=== PATIENT | female | born 1950 | race Two or more races ===

== ENCOUNTER 2024-11-22 23:52 | Inpatient (IN) | payer OTHER ==
[~2024-11-22] VITALS: Ht 152.4 cm; Wt 118.0 kg
--- NOTE | 2024-11-23 00:09 | ED.PDOC ---
Altered Mental Status HPI Comments 74-year-old female into ER via EMS for confusion. Per EMS, patient being transferred from [facility]. Initial complaint of confusion and altered mental status, noted by family members. Denies any subjective complaints, denies any pain. Diagnostic exams done at [facility] showed elevated troponin levels, so patient was transferred to this institution for further evaluation and management. Denies any chest pains. Patient does have history of diabetes, congestive heart failure, lupus. Chief Complaint: Confusion Time Seen by MD: 00:09 Reviewed Notes: Truck Crane Operator Notes Allergies: Coded Allergies: NO KNOWN ALLERGIES (Unverified , 11/23/24) Information Source: Patient, Emergency Med Personnel Mode of Arrival: EMS Severity: Unable to Care for Self Timing: Hours Duration: Since onset Prehospital treatment: None Quality: Decreased Alertness, Change in Behavior, Confusion History of: Diabetes Past Medical History PAST MEDICAL HISTORY: CHF, DM Past Medical History (Other): Lupus Surgical History: Denies all surgeries REHAB RN History: Denies all REHAB RN Hx Family History Family History: Reviewed,noncontributory to illness Social History Smoker: Non-Smoker Alcohol: Denies ETOH Use Drugs: Denies Drug Use Lives In: Home Unable to Obtain due to: Altered Mental Status Physical Exam General Appearance: No Apparent Distress, Normal HEENT: Normal ENT Inspection, Pharynx Normal, TMs Normal Neck: Full Range of Motion, Non-Tender, Normal, Normal Inspection Respiratory: Chest Non-Tender, Lungs Clear, No Accessory Muscle Use, No Respiratory Distress, Normal Breath Sounds Cardiovascular: No Edema, No JVD, No Murmur, No Gallop, Normal Peripheral Pulses, Regular Rate/Rhythm Breast Exam: Deferred Gastrointestinal: No Organomegaly, Non Tender, No Pulsatile Mass, Normal Bowel Sounds, Soft Genitalia: Deferred Pelvic: Deferred Rectal: Deferred Extremities: No calf tenderness, Normal capillary refill, Normal inspection, Normal range of motion, Non-tender, No pedal edema Musculoskeletal : Apperance: Normal Neurologic: Alert, meatcutter II-XII nml as Tested, No Motor Deficits, Normal Affect, Normal Mood, No Sensory Deficits Cerebellar Function: Normal Reflexes: Normal Skin: Dry, Normal Color, Warm Lymphatic: No Adenopathy Was a procedure done? Was a procedure done?: No Differential Diagnosis (ALOC) Differential Diagnosis: Hypoglycemia, Encephalopathy, Sepsis, Hypoxemia, CVA, Heart Failure, Renal Failure X-Ray, Labs, Meds, VS Vital Signs Date Time Temp Pulse Resp B/P (MAP) Pulse Ox O2 Delivery O2 Flow Rate FiO2 11/22/24 23:52 98.3 84 18 110/72 98 98.3 Lab Test 11/23/24 01:50 11/23/24 00:44 Range/Units White Blood Count 7.3 4.4-10.8 10^3/uL Red Blood Count 4.00 4.0-5.20 10^6/uL Hemoglobin 10.4 L 12.2-16.2 g/dL Hematocrit 30.6 L 36.0-46.0 % Mean Corpuscular Volume 76.3 L 80.0-100.0 fL Mean Corpuscular Hemoglobin 25.9 L 28.0-32.0 pg Mean Corpuscular Hemoglobin Concent 33.9 32.0-36.0 g/dL Red Cell Distribution Width 15.9 H 11.8-14.3 % Platelet Count 9 *L 140-450 10^3/uL Mean Platelet Volume 8.7 6.9-10.8 fL Neutrophils (%) (Auto) 73.5 37.0-80.0 % Lymphocytes (%) (Auto) 16.0 10.0-50.0 % Monocytes (%) (Auto) 7.6 0.0-12.0 % Eosinophils (%) (Auto) 2.1 0.0-7.0 % Basophils (%) (Auto) 0.8 0.0-2.0 % Neutrophils # (Auto) 5.4 1.6-8.6 10 ^3/uL Lymphocytes # (Auto) 1.2 0.4-5.4 10 ^3/uL Monocytes # (Auto) 0.6 0-1.3 10 ^3/uL Eosinophils # (Auto) 0.2 0-0.8 10 ^3/uL Basophils # (Auto) 0.1 0-0.2 10 ^3/uL Nucleated Red Blood Cells 0.6 % Platelet Estimate Pending Troponin I High Sensitivity 1612 *H 1870 *H </=34 ng/L Sodium Level 136 136-145 mmol/L Potassium Level 4.1 3.5-5.1 mmol/L Chloride Level 101 98-107 mmol/L Carbon Dioxide Level 18 L 20-31 mmol/L Anion Gap 17 H 5-15 Blood Urea Nitrogen 64 H 9-23 mg/dL Creatinine 3.94 H 0.550-1.02 mg/dL Glomerular Filtration Rate Calc 11 >90 mL/min BUN/Creatinine Ratio 16.2 10.0-20.0 Serum Glucose 109 H 74-106 mg/dL Lactic Acid Level 1.5 0.4-2.0 mmol/L Calcium Level 9.0 8.7-10.4 mg/dL Magnesium Level 1.9 1.6-2.6 mg/dL Total Bilirubin 3.3 H 0.2-1.0 mg/dL Aspartate Amino Transferase (AST) 107 H 13-40 U/L Alanine Aminotransferase (ALT) 36 7-40 U/L Alkaline Phosphatase 71 46-116 U/L B-Type Natriuretic Peptide 76.94 0-100 pg/mL Total Protein 8.4 H 5.7-8.2 g/dL Albumin 4.0 3.2-4.8 g/dL Plasma/Serum Blood Alcohol < 3.0 <10 mg/dL EXAM: CT HEAD WITHOUT CONTRAST INDICATION: ALOC TECHNIQUE: CT of the head without intravenous contrast. Radiation Dose : 1. Head: CT Dose: CTDI volume is 64.82 mGy. Dose-length product is 1277.22 mGy*cm The dose indicators for CT are the volume Computed Tomography (CT) Dose Index (CTDIvol) and the Dose Length Product (DLP), and are measured in units of mGy and mGy-cm, respectively. These indicators are not patient dose, but values generated from the CT scanner acquisition factors. The report includes radiation exposure data for exposures received during this examination. COMPARISON: None FINDINGS: There is no evidence of acute intracranial hemorrhage, extra-axial collection, mass effect, midline shift, herniation or hydrocephalus. Increased prominence of the ventricles, sulci and cisterns consistent with the sequelae of atrophic cortical volume loss. The bennett-white differentiation is intact. Moderate diffuse confluent periventricular and subcortical white matter hypoattenuation is nonspecific but may be related to small vessel ischemic disease. The visualized paranasal sinuses and mastoid air cells are clear. The surrounding soft tissues and osseous structures are unremarkable. IMPRESSION: 1. No acute intracranial abnormality. 2. 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 Radiation optimization: All CT scans at this facility use at least one of these dose optimization techniques: automated exposure control mA and/or kV adjustment per patient size (includes targeted exams where dose is matched to clinical indication) or iterative reconstruction. T RADIOGRAPH Indication: SOB Technique: Single frontal view of the chest was obtained COMPARISON: Left internal jugular central venous catheter tip projects over the proximal superior vena cava. FINDINGS: Lines and Tubes: None Lungs: Clear Pleura: No effusion. No pneumothorax. Cardiomediastinal contours: Unremarkable Bones: Unremarkable hardware within the left glenohumeral joint status post reverse total shoulder arthroplasty. IMPRESSION: 1. No acute cardiopulmonary disease. 2. Left internal jugular central venous catheter. Time of 1ST Reevaluation: 00:05 Reevaluation 1ST: Unchanged Patient Education/Counseling: Diagnosis, Treatment Family Education/Counseling: No Family Present SEPSIS Sepsis Screen Physician Orders Complete Blood Count (11/23/24 00:00) Urinalysis (11/23/24 00:00) Chest Portable (11/23/24 00:11) Head Without Contrast (11/23/24 00:11) Drug Screen (11/23/24 00:00) Industrial Gas Servicer (11/23/24 00:00) Blood Culture (11/23/24 00:00) Troponin-I Hs (11/23/24 03:00) Rbc Morphology (11/23/24 01:50) Vital Signs Date Time Temp Pulse Resp B/P (MAP) Pulse Ox O2 Delivery O2 Flow Rate FiO2 11/22/24 23:52 98.3 84 18 110/72 98 98.3 Laboratory Tests Test 11/23/24 00:44 11/23/24 01:50 Lactic Acid Level 1.5 mmol/L (0.4-2.0) White Blood Count 7.3 10^3/uL (4.4-10.8) Departure 1 Departure Time of Disposition: 02:45 Impression: Primary Impression: Systemic lupus erythematosus Additional Impressions: Acute renal injury Elevated troponin Thrombocytopenia Intermediate coronary syndrome Disposition: 09 ADMITTED INPATIENT Admit to: [facility] Condition: Guarded Comments Patient with history of lupus now with generalized weakness and decreased mental status noted by family. Patient's BUN creatinine are high at 64 and 3.94. To shahzad bilirubin elevated 3.3. Low platelets and 9. Initial troponin is elevated 1870. Second troponin is improved at 1612. Patient received an aspirin and [facility]. Patient I ordered IV fluids. I ordered platelet transfusion. Patient will need to be admitted for supportive care and further workup. Critical Care Note Critical Care Time?: No Stability Stability form required: No Heart Score Heart Score: Heart Score Response (Comments) Value History Slightly Suspicious 0 EKG Repolarization Disturb 1 Age >65 2 Risk Factors 1 or 2 risk factors 1 Troponin >3 x's Normal limit 2 Total 6 I personally scribed for RASHAD THOMPSON MD ([email or web address]) on 11/23/24 at 00:09. Electronically submitted by Jordon Pelletier ([email or web address]). I personally scribed for RASHAD THOMPSON MD ([email or web address]) on 11/23/24 at 02:02. Electronically submitted by Jordon Pelletier ([email or web address]). RASHAD THOMPSON MD Nov 23, 2024 00:09
--- NOTE | 2024-11-23 01:10 | DVH ---
EXAM: CT HEAD WITHOUT CONTRAST INDICATION: ALOC TECHNIQUE: CT of the head without intravenous contrast. Radiation Dose : 1. Head: CT Dose: CTDI volume is 64.82 mGy. Dose-length product is 1277.22 mGy*cm The dose indicators for CT are the volume Computed Tomography (CT) Dose Index (CTDIvol) and the Dose Length Product (DLP), and are measured in units of mGy and mGy-cm, respectively. These indicators are not patient dose, but values generated from the CT scanner acquisition factors. The report includes radiation exposure data for exposures received during this examination. COMPARISON: None FINDINGS: There is no evidence of acute intracranial hemorrhage, extra-axial collection, mass effect, midline s hift, herniation or hydrocephalus. Increased prominence of the ventricles, sulci and cisterns consistent with the sequelae of atrophic c ortical volume loss. The bennett-white differentiation is intact. Moderate diffuse confluent periventricular and subcortical white matter hypoattenuation is nonspecifi c but may be related to small vessel ischemic disease. The visualized paranasal sinuses and mastoid air cells are clear. The surrounding soft tissues and osseous structures are unremarkable. IMPRESSION: 1. No acute intracranial abnormality. 2. 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 Radiation optimization: All CT scans at this facility use at least one of these dose optimization farooq hniques: automated exposure control mA and/or kV adjustment per patient size (includes targeted exam s where dose is matched to clinical indication) or iterative reconstruction.
--- NOTE | 2024-11-23 01:19 | DVH ---
CHEST RADIOGRAPH Indication: SOB Technique: Single frontal view of the chest was obtained COMPARISON: Left internal jugular central venous catheter tip projects over the proximal superior mehdi a cava. FINDINGS: Lines and Tubes: None Lungs: Clear Pleura: No effusion. No pneumothorax. Cardiomediastinal contours: Unremarkable Bones: Unremarkable hardware within the left glenohumeral joint status post reverse total shoulder ar throplasty. IMPRESSION: 1. No acute cardiopulmonary disease. 2. Left internal jugular central venous catheter.
[2024-11-23 02:03] LABS: Hemoglobin 10.4 g/dL (12.2-16.2)
[2024-11-23 02:05] LABS: Hematocrit 30.6 % (36.0-46.0); Mean Corpuscular Hemoglobin 25.9 pg (28.0-32.0); Mean Corpuscular Volume 76.3 fL (80.0-100.0); Nucleated Red Blood Cells % 0.6 %
[2024-11-23 02:13] LABS: Alanine Aminotransferase 36 U/L (7-40); Albumin 4.0 g/dL (3.2-4.8); Alkaline Phosphatase 71 U/L (46-116); Anion Gap 17 (5-15); BUN/Creatinine Ratio 16.2 (10.0-20.0); Calcium 9.0 mg/dL (8.7-10.4); Chloride 101 mmol/L (98-107); Magnesium 1.9 mg/dL (1.6-2.6); Potassium 4.1 mmol/L (3.5-5.1)
[2024-11-23 02:20] LABS: Bilirubin, Total 3.3 mg/dL (0.2-1.0); Blood Urea Nitrogen 64 mg/dL (9-23); Carbon Dioxide 18 mmol/L (20-31); Glucose 109 mg/dL (74-106); Sodium 136 mmol/L (136-145); Total Protein 8.4 g/dL (5.7-8.2)
[2024-11-23] MEDS: SODIUM CHLORIDE 0.9% 500 ML IVB ONE (03:41)
[2024-11-23 08:00] VITALS: PULSE 82; RESP 16; O2SAT 94
[2024-11-23] MEDS ORDERED: ACETAMINOPHEN 325 MG TAB PO PRN (09:45)
[2024-11-23] MEDS ORDERED: NITROGLYCERIN 0.4 MG SL TAB SL PRN (09:45)
[2024-11-23] MEDS ORDERED: ONDANSETRON HCL 4 MG/2 ML VIAL IV PRN (09:45)
[2024-11-23] MEDS ORDERED: MORPHINE SULFATE INJ 2 MG/ml SYRG IV PRN (09:45)
[2024-11-23] MEDS ORDERED: DOCUSATE SOD 100 MG CAP PO PRN (09:45)
[2024-11-23] MEDS ORDERED: HYDROcodone-ACET 5/325MG TAB PO PRN (09:45)
[2024-11-23] MEDS: SODIUM CHLORIDE 0.9% 1,000 ML IV SCH (10:12)
--- NOTE | 2024-11-23 10:20 | DVHHP2 ---
History of Present Illness Reason for Visit: Elevated troponin History of Present Illness Ga Campbell is a 74-year-old female with past medical history of diabetes, CHF, obesity, and lupus, who went to [facility] for confusion. While at [facility] it was noted that her troponin were elevated so she was transferred here for higher level of care. During my initial assessment she was able to tell me her name and date of . She knew she was in the hospital, but unclear as to why. Follows command intermittently, easily side tract in a conversation. CT scan showed no acute findings. Platelets are critically low. Through the afternoon her mentation deteriorated. A repeat head CT was ordered to R/O bleed. Family including Son and Spouse were at the bedside, they are poor center medical director's. Spouse states she has not been feeling well for about 3 days. She has been mostly sleeping and that is not common for her. Cardiovascular: CHF Rheumatologic: Other (Lupus) Endocrine: Diabetes, Hypothyroidism Past Surgical History: Other (left shoulder replacement) Smoke: No ALCOHOL: none Drugs: None Lives: with Family Domestic Violence: Neg Review of Systems Constitutional: No: Fever, Chills, Sweats, Weakness, Malaise, Other Eyes: No: Pain, Vision change, Conjunctivae inflammation, Eyelid inflammation, Other, Redness ENT: No: Ear pain, Ear discharge, Nose pain, Nose discharge, Nose congestion, Mouth pain, Mouth swelling, Throat pain, Throat swelling, Other Respiratory: No: Cough, Dry, Shortness of breath, SOB with excertion, Wheezing, Hemoptysis, Pleuritic Pain, Sputum, Wheezing, Other Cardiovascular: No: Chest Pain, Palpitations, Orthopnea, Paroxysmal Noc. Dyspnea, Edema, Lt Headedness, Other Gastrointestinal: No: Nausea, Vomiting, Abdominal Pain, Diarrhea, Constipation, Melena, Hematochezia, Other Genitourinary: No Dysuria, No Frequency, No Incontinence, No Hematuria, No Retention, No Other Musculoskeletal: No: other, neck pain, shoulder pain, arm pain, back pain, hand pain, leg pain, foot pain Skin: No: Rash, Lesions, Jaundice, Bruising, Other Neurological: Weakness, Incoordination, Change in speech, Confusion; No: Numbness, Seizures, Other Allergies: Coded Allergies: NO KNOWN ALLERGIES (Unverified , 11/23/24) Medications Current Medications Medications Dose Ordered Sig/Christina Route Start Time Stop Time Status Last Admin Dose Admin Sodium Chloride 1,000 ml @ 60 mls/hr [id number] IV 11/23/24 09:45 UNV Acetaminophen/ Hydrocodone Bitart 1 tab Q4HP PRN PO 11/23/24 09:45 UNV Ondansetron HCl 4 mg Q4HP PRN IV 11/23/24 09:45 UNV Docusate Sodium 100 mg BIDPRN PRN PO 11/23/24 09:45 UNV Acetaminophen 650 mg Q6HP PRN PO 11/23/24 09:45 UNV Nitroglycerin 0.4 mg Q5MINP PRN SL 11/23/24 09:45 UNV Morphine Sulfate 2 mg Q30M PRN IV 11/23/24 09:45 UNV Exam Vital Signs Vital Signs Date Time Temp Pulse Resp B/P (MAP) Pulse Ox O2 Delivery O2 Flow Rate FiO2 11/23/24 05:48 98.0 81 22 114/87 (96) 95 98.0 11/23/24 03:44 Room Air* 0 21 General Appearance: Alert, Other (A&O x 2) Respiratory: Clear to auscultation Cardiovascular: Regular rate, Normal S1, Normal S2, No murmurs Abdominal: Normal bowel sounds, Soft, No tenderness Extremities: No clubbing, No cyanosis, Other (bilateral lower extremity edema) Skin: No rashes, No breakdown Neuro: Other (Follows command intermittently, easily side tract in a conversation) Labs/Xrays Labs Test 11/23/24 03:25 11/23/24 01:50 11/23/24 00:44 Range/Units Troponin I High Sensitivity 1591 *H </=34 ng/L White Blood Count 7.3 4.4-10.8 10^3/uL Red Blood Count 4.00 4.0-5.20 10^6/uL Hemoglobin 10.4 L 12.2-16.2 g/dL Hematocrit 30.6 L 36.0-46.0 % Mean Corpuscular Volume 76.3 L 80.0-100.0 fL Mean Corpuscular Hemoglobin 25.9 L 28.0-32.0 pg Mean Corpuscular Hemoglobin Concent 33.9 32.0-36.0 g/dL Red Cell Distribution Width 15.9 H 11.8-14.3 % Platelet Count 9 *L 140-450 10^3/uL Mean Platelet Volume 8.7 6.9-10.8 fL Neutrophils (%) (Auto) 73.5 37.0-80.0 % Lymphocytes (%) (Auto) 16.0 10.0-50.0 % Monocytes (%) (Auto) 7.6 0.0-12.0 % Eosinophils (%) (Auto) 2.1 0.0-7.0 % Basophils (%) (Auto) 0.8 0.0-2.0 % Neutrophils # (Auto) 5.4 1.6-8.6 10 ^3/uL Lymphocytes # (Auto) 1.2 0.4-5.4 10 ^3/uL Monocytes # (Auto) 0.6 0-1.3 10 ^3/uL Eosinophils # (Auto) 0.2 0-0.8 10 ^3/uL Basophils # (Auto) 0.1 0-0.2 10 ^3/uL Nucleated Red Blood Cells 0.6 % Platelet Estimate Markedly decreased Sodium Level 136 136-145 mmol/L Potassium Level 4.1 3.5-5.1 mmol/L Chloride Level 101 98-107 mmol/L Carbon Dioxide Level 18 L 20-31 mmol/L Anion Gap 17 H 5-15 Blood Urea Nitrogen 64 H 9-23 mg/dL Creatinine 3.94 H 0.550-1.02 mg/dL Glomerular Filtration Rate Calc 11 >90 mL/min BUN/Creatinine Ratio 16.2 10.0-20.0 Serum Glucose 109 H 74-106 mg/dL Lactic Acid Level 1.5 0.4-2.0 mmol/L Calcium Level 9.0 8.7-10.4 mg/dL Magnesium Level 1.9 1.6-2.6 mg/dL Total Bilirubin 3.3 H 0.2-1.0 mg/dL Aspartate Amino Transferase (AST) 107 H 13-40 U/L Alanine Aminotransferase (ALT) 36 7-40 U/L Alkaline Phosphatase 71 46-116 U/L B-Type Natriuretic Peptide 76.94 0-100 pg/mL Total Protein 8.4 H 5.7-8.2 g/dL Albumin 4.0 3.2-4.8 g/dL Plasma/Serum Blood Alcohol < 3.0 <10 mg/dL EXAM: CT HEAD WITHOUT CONTRAST FINDINGS: There is no evidence of acute intracranial hemorrhage, extra-axial collection, mass effect, midline shift, herniation or hydrocephalus. Increased prominence of the ventricles, sulci and cisterns consistent with the sequelae of atrophic cortical volume loss. The bennett-white differentiation is intact. Moderate diffuse confluent periventricular and subcortical white matter hypoattenuation is nonspecific but may be related to small vessel ischemic disease. The visualized paranasal sinuses and mastoid air cells are clear. The surrounding soft tissues and osseous structures are unremarkable. IMPRESSION: 1. No acute intracranial abnormality. 2. 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 CHEST RADIOGRAPH FINDINGS: Lines and Tubes: None Lungs: Clear Pleura: No effusion. No pneumothorax. Cardiomediastinal contours: Unremarkable Bones: Unremarkable hardware within the left glenohumeral joint status post reverse total shoulder arthroplasty. IMPRESSION: 1. No acute cardiopulmonary disease. 2. Left internal jugular central venous catheter. SEPSIS Sepsis Screen Date sepsis recognized/suspect: Nov 22, 2024 Time Sepsis recognized/suspect: 2351 Recent Procedure: No On Antibiotic Therapy: No Respiratory Rate >20: No Heart Rate >90: No Temp<36 C (96.8 F) or >38.3 C: No SBP <90 or MAP <65 mmHG: No New Acute Mental Status Change: No Is the patient on CPAP, BIPAP,: No Physician Orders * Cardiology Consult (11/23/24 09:43) Admit (11/23/24 09:44) Code Status (11/23/24 09:44) Sodium Chloride 0.9% (11/23/24 09:45) Hydrocodone-Acet 5/325mg Tab (Two Dot 5/32 (11/23/24 09:45) Ondansetron Hcl (Zofran) (11/23/24 09:45) Docusate Sodium Capsule (Colace Capsule) (11/23/24 09:45) Complete Blood Count (11/24/24 04:00) Comprehensive Metabolic Panel (11/24/24 04:00) Npo (Nothing By Mouth) Diet (11/23/24 Lunch) Condition: Critical (11/23/24 09:44) Acetaminophen Tablet (Tylenol Tablet) (11/23/24 09:45) Nitroglycerin Sublingual (Ntrostat Subli (11/23/24 09:45) Morphine Sulfate Injection (11/23/24 09:45) Stat Ekg For Chest Pain (11/23/24 09:44) Notify Md Of Changes From Base (11/23/24 09:44) District Traffic Chief For 24 Hours (11/23/24 09:44) Emergency Dysrhythmia Protocol (11/23/24 09:44) Rhythm Strips Once Every Shift (11/23/24 09:44) Oxygen By Nasal Cannula (11/23/24 09:44) Vital Signs Date Time Temp Pulse Resp B/P (MAP) Pulse Ox O2 Delivery O2 Flow Rate FiO2 11/23/24 05:48 98.0 81 22 114/87 (96) 95 98.0 11/23/24 03:44 Room Air* 0 21 11/23/24 03:43 98.5 83 19 113/77 (89) 97 98.5 Laboratory Tests Test 11/23/24 00:44 11/23/24 01:50 Lactic Acid Level 1.5 mmol/L (0.4-2.0) White Blood Count 7.3 10^3/uL (4.4-10.8) Medications Medications Dose Ordered Sig/Christina Route Start Time Stop Time Status Last Admin Dose Admin Sodium Chloride 500 ml @ 500 mls/hr Q1H ONCE IVB 11/23/24 00:00 11/23/24 00:59 DC 11/23/24 03:41 500 MLS/HR Assessment/Plan Assessment/Plan Assessment: Elevated troponin, Metabolic encephalopathy, Thrombocytopenia, Acute kidney injury, Lupus, Hypothyroidism, Diabetes, Plan: Admit to Tele, Cardiology consult, Nephrology consult, NPO, D-dimer, CT head, Consider MRI of brain, Accu checks with sliding scale, Home medications reconciled, Plan discussed with: Patient My Orders Orders - CHRISTIAN NOVOA Procedure Category Date Status Time * Cardiology Consult CONS 11/23/24 Transmitted 09:43 Admit ADMIT 11/23/24 Transmitted 09:44 Code Status CODE 11/23/24 Transmitted 09:44 Sodium Chloride 0.9% PHA 11/23/24 Logged 09:45 Hydrocodone-Acet PHA 11/23/24 Logged 5/325mg Tab (Two Dot 09:45 Ondansetron Hcl PHA 11/23/24 Logged (Zofran) 09:[address] [facility] 11/23/24 Logged Capsule (Colace 09:45 Complete Blood Count LAB 11/24/24 Verified 04:00 Comprehensive LAB 11/24/24 Verified Metabolic Panel 04:00 Npo (Nothing By DIET 11/23/24 Transmitted Mouth) Diet Lunch Condition: Critical [facility] 11/23/24 In Process 09:[address] [facility] 11/23/24 Logged (Tylenol Tablet) 09:[address] [facility] 11/23/24 Logged Sublingual (Ntrostat 09:[address] [facility] 11/23/24 Logged Injection 09:45 Stat Ekg For Chest [facility] 11/23/24 In Process Pain 09:44 Notify Of Changes [facility] 11/23/24 In Process From Base 09:44 District Traffic Chief For [facility] 11/23/24 In Process 24 Hours 09:44 Emergency Dysrhythmia [facility] 11/23/24 In Process Protocol 09:44 Rhythm Strips Once [facility] 11/23/24 In Process Every Shift 09:44 Oxygen By Nasal RT 11/23/24 Transmitted Cannula 09:44 Date of Service: Nov 23, 2024 Billing Provider: CHRISTIAN NOVOA Common Visit Codes: [id number] INP/OBS CARE (HIGH) CHRISTIAN NOVOA Nov 23, 2024 10:20
[2024-11-23] MEDS ORDERED: DEXTROSE (50%) 50ML SYRG IV PRN (10:30)
[2024-11-23 10:33] VITALS: BP 132/86; PULSE 81; RESP 17; TEMP 98.3
--- NOTE | 2024-11-23 10:42 | DVHINCON2 ---
Date Seen: Nov 23, 2024 Referring Physician MEIR Zhou Reason for Consultation NSTEMI History of Present Illness This is a 74-year-old female who presented to [facility] on via EMS with a chief complaint of ALOC. The patient has been transferred to our facility for higher level of care. At time of assessment the patient was found A&O x1. Information obtained from records from aforementioned facility. It appears the patient's reported ALOC, generalized weakness, increased lethargy, myalgia, chills, nausea, and anuria. Pertinent negatives including fever, vomiting, diarrhea, chest pain, SOB, abdominal pain, no sick contacts, or trauma. She underwent blood work including a troponin level of 2.53 ng/mL followed by 1.83 ng/mL, d-dimer >29, Hgb/Hct 11.5/32.7, platelet count 10, creatinine 4.1, GFR 11, BNP 171, HgbA1C 5.7, glucose level 132, and negative influenza A&B/SARS antigen. A 12 lead electrocardiogram revealed a normal sinus rhythm with a premature ventricular contraction. She was medicated with ASA 324 mg p.o., Lipitor 40 mg p.o., ondansetron 4 mg IV, and NS x500 mLs. Significant medical history includes systemic lupus erythematosus, unspecified congestive heart failure, diabetes mellitus type 2, dyslipidemia, hypothyroidism, GERD, and morbid obesity. Past Medical History Past medical history reviewed. No other significant than mentioned above. Past Surgical History Port-A-Cath to left upper chest Left shoulder repair Family History Unable to obtain family history at this time. Social History Unable to obtain social history at this time. Allergies: Coded Allergies: NO KNOWN ALLERGIES (Unverified , 11/23/24) Home Meds Unable to obtain home medications at this time. Current Medications Current Medications Medications (Trade) Dose Ordered Sig/Christina Route PRN Reason Start Time Stop Time Status Last Admin Sodium Chloride 1,000 ml @ 60 mls/hr [id number] IV 11/23/24 09:45 11/23/24 10:12 Acetaminophen/ Hydrocodone Bitart ([place] 5/325MG Tab) 1 tab Q4HP PRN PO MODERATE PAIN (4-6 PAIN SCALE) 11/23/24 09:45 Ondansetron HCl (Zofran) 4 mg Q4HP PRN IV NAUSEA / VOMITING 11/23/24 09:45 Docusate Sodium (Colace Capsule) 100 mg BIDPRN PRN PO FOR CONSTIPATION 11/23/24 09:45 Acetaminophen (Tylenol Tablet) 650 mg Q6HP PRN PO PAIN SCALE 1-3 OR TEMP>100.4 11/23/24 09:45 Nitroglycerin (Ntrostat Sublingual) 0.4 mg Q5MINP PRN SL FOR CHEST PAIN 11/23/24 09:45 Morphine Sulfate 2 mg Q30M PRN IV FOR CHEST PAIN 11/23/24 09:45 Diagnostic Test (Pha) (Accu-Chek Comfort Curve T) 1 strip ACHS 11/23/24 11:30 Insulin Human Regular (InsuLIN R) HS SC 11/23/24 22:00 Insulin Human Regular (InsuLIN R) AC SC 11/23/24 11:30 Dextrose 50 ml UD PRN IV Blood Sugar LESS THAN 60 11/23/24 10:30 Review of Systems Constitutional: Generalized weakness, lethargy, myalgia, chills Ears, Nose, & Throat: No symptom reported Eyes: No symptom reported Neurological: ALOC Pulmonary/Respiratory: No symptom reported Cardiovascular: No symptom reported Gastrointestinal: Nausea Genitourinary: Anuria Musculoskeletal: No symptom reported Skin: No symptom reported Psychiatric: No symptom reported Endocrine: No symptom reported Hemotologic/Lymphatic: No symptom reported Vital Signs Vital Signs Date Time Temp Pulse Resp B/P (MAP) Pulse Ox O2 Delivery O2 Flow Rate FiO2 11/23/24 10:33 98.3 81 17 132/86 98.3 11/23/24 05:48 95 11/23/24 03:44 Room Air* 0 21 Physical Exam General Appearance: A&O x1. Confused. Morbidly obese. In no acute distress Head Exam: Normal inspection Neck Exam: Normal inspection. Normal alignment Pulmonary/Respiratory: Clear bilateral breath sounds Cardiovascular/Chest: Regular rate and rhythm. S1, S2. NSR. No murmurs. No JVD. Peripheral Pulses: 2+ Radial (R). 2+ Radial (L). 2+ Pedal (R). 2+ Pedal (L) Abdominal Exam: Normal bowel sounds Ankle Exam: Negative ankle edema Lower extremities: Negative lower extremity edema Neuro/Mental Status: A&O x1. Brief lucid episodes, mostly incoherent Thoughts/Psych: ALOC Appearance: In no acute distress Skin Exam: Normal inspection. Normal color. Warm. Dry Labs/Diagnostic Data Labs Test 11/23/24 03:25 11/23/24 01:50 11/23/24 00:44 Range/Units Troponin I High Sensitivity 1591 *H </=34 ng/L White Blood Count 7.3 4.4-10.8 10^3/uL Red Blood Count 4.00 4.0-5.20 10^6/uL Hemoglobin 10.4 L 12.2-16.2 g/dL Hematocrit 30.6 L 36.0-46.0 % Mean Corpuscular Volume 76.3 L 80.0-100.0 fL Mean Corpuscular Hemoglobin 25.9 L 28.0-32.0 pg Mean Corpuscular Hemoglobin Concent 33.9 32.0-36.0 g/dL Red Cell Distribution Width 15.9 H 11.8-14.3 % Platelet Count 9 *L 140-450 10^3/uL Mean Platelet Volume 8.7 6.9-10.8 fL Neutrophils (%) (Auto) 73.5 37.0-80.0 % Lymphocytes (%) (Auto) 16.0 10.0-50.0 % Monocytes (%) (Auto) 7.6 0.0-12.0 % Eosinophils (%) (Auto) 2.1 0.0-7.0 % Basophils (%) (Auto) 0.8 0.0-2.0 % Neutrophils # (Auto) 5.4 1.6-8.6 10 ^3/uL Lymphocytes # (Auto) 1.2 0.4-5.4 10 ^3/uL Monocytes # (Auto) 0.6 0-1.3 10 ^3/uL Eosinophils # (Auto) 0.2 0-0.8 10 ^3/uL Basophils # (Auto) 0.1 0-0.2 10 ^3/uL Nucleated Red Blood Cells 0.6 % Platelet Estimate Markedly decreased Sodium Level 136 136-145 mmol/L Potassium Level 4.1 3.5-5.1 mmol/L Chloride Level 101 98-107 mmol/L Carbon Dioxide Level 18 L 20-31 mmol/L Anion Gap 17 H 5-15 Blood Urea Nitrogen 64 H 9-23 mg/dL Creatinine 3.94 H 0.550-1.02 mg/dL Glomerular Filtration Rate Calc 11 >90 mL/min BUN/Creatinine Ratio 16.2 10.0-20.0 Serum Glucose 109 H 74-106 mg/dL Lactic Acid Level 1.5 0.4-2.0 mmol/L Calcium Level 9.0 8.7-10.4 mg/dL Magnesium Level 1.9 1.6-2.6 mg/dL Total Bilirubin 3.3 H 0.2-1.0 mg/dL Aspartate Amino Transferase (AST) 107 H 13-40 U/L Alanine Aminotransferase (ALT) 36 7-40 U/L Alkaline Phosphatase 71 46-116 U/L B-Type Natriuretic Peptide 76.94 0-100 pg/mL Total Protein 8.4 H 5.7-8.2 g/dL Albumin 4.0 3.2-4.8 g/dL Plasma/Serum Blood Alcohol < 3.0 <10 mg/dL Assessment Possible uremic encephalopathy Severe thrombocytopenia with history of SLE Elevated D-dimer >29 rule out venous thromboembolism Acute kidney injury NSTEMI, likely type II secondary to above Rule out structural heart disease Microcytic anemia Morbid obesity Plan/Recommendation (Dr. Pierce) Likely NSTEMI Type II secondary to overall clinical derangement. We will continue further cardiac evaluation with a transthoracic echocardiogram to evaluate cardiac function. In the meantime, continue with a bilateral lower extremity venous US to rule out DVT and VQ Scan to rule out PE given elevated d- dimer level >29. Hold off on anticoagulation or antiplatelet therapy at this time given severe thrombocytopenia. Agree with platelet infusion. Obtain a Nephrology consultation. Obtain iron panel, ESR and CRP levels given history of SLE. In the setting of unremarkable TTE and venous thromboembolism, there is no further cardiac work-up indicated at this time. Thank you for allowing us to participate in this patient's care. Please call if you have any questions or concerns. Critical care time: 40 minutes. This medical document was created using an electronic medical record system with voice recognition software and computerized dictation system. Although this document has been carefully reviewed, there might still be some phonetic and typographical errors. Occasional wrong-word or ``sound-alike substitutions may have occurred due to the inherent limitations of voice recognition software. These areas are purely typographical due to imperfections of the software programs and do not reflect any compromise in the patient's medical care. Please read the chart carefully and recognize, using context, where these substitutions have occurred. Plan discussed with: Patient, Other NYHA Physical activity limitations: NA Date of Service: Nov 23, 2024 Billing Provider: KELSEY CHAPMAN Cardiology Common Codes: 62781-[id number] CARE 30-74 MIN KELSEY CHAPMAN Nov 23, 2024 10:42
[2024-11-23 10:48] VITALS: BP 157/99; PULSE 86; RESP 12; TEMP 98.5
[2024-11-23 12:00] VITALS: BP 148/88; PULSE 84; RESP 15; TEMP 98.3
[2024-11-23 12:18] LABS: Urine Protein, UAD 1+ (Negative)
[2024-11-23 12:25] LABS: Amphetamine Screen, Urine Neg (NEGATIVE); Barbiturate Scree,Urine Neg (NEGATIVE); Benzodiazephine Screen, Urine Neg (NEGATIVE); Cannabinoid Screen, Urine Neg (NEGATIVE); Cocaine Screen, Urine Neg (NEGATIVE); Opiate Scree,Urine Pos (NEGATIVE); Phencyclidine Screen, Urine Neg (NEGATIVE)
--- NOTE | 2024-11-23 12:42 | DVH ---
Bilateral Upper Extremity Venous Duplex Clinical History: ELEVATED DDIMER Comparison: None Findings: Duplex Doppler evaluation of the venous systems of the right and left lower neck and upper extremitie s including color Doppler and spectral/pulsed waveform analysis was performed. RIGHT SIDE: The internal jugular vein demonstrates appropriate compressibility and waveform variability. The subclavian vein is patent on color Doppler evaluation without intraluminal thrombus and demonstra aviva waveform variability. The visualized portion of the brachiocephalic vein is patent on color Doppler evaluation without intr aluminal thrombus and demonstrates waveform variability. The axillary vein demonstrates appropriate compressibility and waveform variability. The brachial veins demonstrate appropriate compressibility and patency on Doppler evaluation. The basilic vein is not visualized. The cephalic vein demonstrates appropriate compressibility and patency on Doppler evaluation. LEFT SIDE: The internal jugular vein demonstrates appropriate compressibility and waveform variability. The subclavian vein is patent on color Doppler evaluation without intraluminal thrombus and demonstra aviva waveform variability. The visualized portion of the brachiocephalic vein is patent on color Doppler evaluation without intr aluminal thrombus and demonstrates waveform variability. The axillary vein demonstrates appropriate compressibility and waveform variability. The brachial veins demonstrate appropriate compressibility and patency on Doppler evaluation. The basilic vein is not visualized. The cephalic vein demonstrates appropriate compressibility and patency on Doppler evaluation. Impression: No venous thrombus identified in the right or left upper extremity vessels evaluated above.
[2024-11-23 13:07] VITALS: BP 126/104; PULSE 87; RESP 13; TEMP 98.5
[2024-11-23 13:15] VITALS: BP 126/104; PULSE 87; RESP 13; TEMP 98.5
[2024-11-23] MEDS: ACCU-CHEK COMFORT CURVE STRIP VI SCH (14:06)
[2024-11-23] MEDS: InsuLIN REG 1unit/0.01ml Soln (100units/ml) SC SCH ×2 (14:07→23:00)
[2024-11-23] MEDS: LORazepam 2MG/ML-1ML VIAL IV ONE (14:26)
--- NOTE | 2024-11-23 15:07 | DVH ---
CLINICAL HISTORY: Elevated ddimer TECHNIQUE: Color and duplex doppler imagine of the right lower extremity veins was performed. Vessel compression and augmentation if possible was also performed. COMPARISON: US BI LAT UPPER DVT on DOS: 11/23/24 FINDINGS: Right Lower Extremity: Right common femoral vein: Normal compressibility and flow. Right superficial femoral vein: Normal compressibility and flow. Right popliteal vein: Normal compressibility and flow. Proximal calf veins demonstrate flow. Left Lower Extremity: Not performed due to patient condition. IMPRESSION: No evidence for right lower extremity DVT. Left lower extremity was not performed due to patient condition.
[2024-11-23] MEDS ORDERED: FURO40TA4 PO (18:03)
[2024-11-23] MEDS ORDERED: ASPI81CH49 PO (18:03)
[2024-11-23] MEDS ORDERED: PANT40T PO (18:03)
[2024-11-23] MEDS ORDERED: ATOR40TA52 PO (18:03)
[2024-11-23] MEDS ORDERED: LEVO25TA6 PO (18:03)
[2024-11-23] MEDS ORDERED: TOLT1CAP29 PO (18:03)
[2024-11-23] MEDS ORDERED: POTA-228 PO (18:03)
[2024-11-23] MEDS: diphenhydrAMINE HCL 50 MG/1 ML VL IV ONE (18:15)
--- NOTE | 2024-11-23 19:29 | DVH ---
COMPUTERIZED TOMOGRAPHY OF THE HEAD WITHOUT CONTRAST REASON FOR STUDY: MENTATION CHANGE COMPARISON: CT HEAD WITHOUT CONTRAST on DOS: 11/23/24 TECHNIQUE: Helical tomographic scans were obtained through the brain. 2-D coronal and sagittal refor matted images are provided. Radiation optimization: All CT scans at this facility use at least one of these dose optimization techniques: Automated exposure control mA and/or kV adjustment per patient s ize (includes targeted exams where dose is matched to clinical indication) or iterative reconstructio n. RADIATION DOSE: CTDI: 29.04 mGy DLP: 1138.57 mGy-cm FINDINGS: Motion artifact degrades evaluation. No suspicious intracranial hyperdensity to suggest acu te blood. There is moderate diffuse cerebral atrophy. There is no mass effect nor midline shift. Ther e is no hydrocephalus. The suprasellar cistern is intact. The calvarium is intact. The visualized mas toid air cells and paranasal sinuses are clear. The patient is status post bilateral lens surgeries. IMPRESSION: No acute intracranial abnormality.
[2024-11-23] MEDS: ATORVASTATIN 20 MG TAB PO ONE (21:30)
[2024-11-24] VITALS (52 sets, daily range): BP systolic 91–117; BP diastolic 49–80; PULSE 83–108; RESP 17–38; TEMP 96.8–97.4; O2SAT 56–100
[2024-11-24 01:37] LABS: Base Excess -4.3 mmol/L (-2.0-3.0)
[2024-11-24 02:37] LABS: Hematocrit 27.0 % (36.0-46.0); Hemoglobin 9.3 g/dL (12.2-16.2); Mean Corpuscular Volume 74.4 fL (80.0-100.0); Nucleated Red Blood Cells % 1.0 %
[2024-11-24 02:40] LABS: Mean Corpuscular Hemoglobin 25.6 pg (28.0-32.0)
[2024-11-24 02:49] LABS: Albumin 3.9 g/dL (3.2-4.8); Alkaline Phosphatase 69 U/L (46-116); Anion Gap 14 (5-15); BUN/Creatinine Ratio 23.3 (10.0-20.0); Calcium 9.1 mg/dL (8.7-10.4); Carbon Dioxide 22 mmol/L (20-31); Chloride 105 mmol/L (98-107); Potassium 3.7 mmol/L (3.5-5.1); Sodium 141 mmol/L (136-145); Total Protein 8.2 g/dL (5.7-8.2)
[2024-11-24 02:50] LABS: INR 1.09 (0.9-1.15); Partial Thromboplastin Time 25.3 SEC (24.5-34.5); Prothrombin Time 11.5 sec (9.3-11.8)
[2024-11-24 03:13] LABS: Alanine Aminotransferase 43 U/L (7-40); Bilirubin, Total 3.9 mg/dL (0.2-1.0); Blood Urea Nitrogen 78 mg/dL (9-23); Glucose 139 mg/dL (74-106); Iron 222.0 ug/dL (50-170); Total Iron Binding Capacity 247.0 ug/dL (250-425)
[2024-11-24 04:08] LABS: Hemoglobin 9.1 g/dL (12.2-16.2)
[2024-11-24 04:12] LABS: Hematocrit 26.4 % (36.0-46.0); Mean Corpuscular Hemoglobin 25.8 pg (28.0-32.0); Mean Corpuscular Volume 74.7 fL (80.0-100.0); Nucleated Red Blood Cells % 0.9 %
[2024-11-24 04:13] LABS: Albumin 3.7 g/dL (3.2-4.8); Alkaline Phosphatase 69 U/L (46-116); Anion Gap 15 (5-15); BUN/Creatinine Ratio 19.4 (10.0-20.0); Calcium 9.1 mg/dL (8.7-10.4); Carbon Dioxide 20 mmol/L (20-31); Chloride 106 mmol/L (98-107); Potassium 3.8 mmol/L (3.5-5.1); Sodium 141 mmol/L (136-145); Total Protein 8.0 g/dL (5.7-8.2)
[2024-11-24 04:21] LABS: Glucose 133 mg/dL (74-106)
[2024-11-24 04:22] LABS: Alanine Aminotransferase 44 U/L (7-40); Bilirubin, Total 3.7 mg/dL (0.2-1.0); Blood Urea Nitrogen 63 mg/dL (9-23); Creatine Kinase IFCC 293 U/L (34-145)
[2024-11-24] MEDS: ETOMIDATE (2MG/ML) 20ML VIAL IV ONE ×2 (07:04→07:08)
[2024-11-24] MEDS: ROCURONIUM 10MG/ML 10ML VIAL IV ONE ×2 (07:09→07:56)
[2024-11-24] MEDS: MIDAZOLAM DRIP 50 mg/50mL 50 ML IV SCH (07:15)
[2024-11-24] MEDS: MIDAZOLAM DRIP 50 mg/50mL 50 ML IV ONE (07:20)
[2024-11-24] MEDS: fentaNYL Drip 2500mCg/250mlNS 250 ML IV SCH (07:30)
[2024-11-24] MEDS: LEVOTHYROXINE SODIUM 25 MCG TAB PO ONE (08:00)
--- NOTE | 2024-11-24 08:19 | DVH ---
CHEST RADIOGRAPH Indication: S/P INTUBATION AND OG Technique: XY CHEST PORTABLE COMPARISON: None FINDINGS: Endotracheal tube tip projects 3.9 cm above the abhi. Nasogastric tube projects towards stomach. Left IJ angel catheter tip projects over the confluence of the SVC, brachiocephalic vein. The cardiac silhouette is enlarged. The lungs demonstrate bilateral patchy airspace opacities. The pu lmonary vasculature is prominent. Small bilateral pleural effusions, [id number]. There i s no pneumothorax. IMPRESSION: As above.
[2024-11-24 08:46] LABS: Base Excess -3.5 mmol/L (-2.0-3.0)
[2024-11-24] MEDS ORDERED: DEXTROSE (50%) 50ML SYRG IV PRN (09:00)
[2024-11-24 09:01] LABS: Base Excess -3.5 mmol/L (-2.0-3.0)
[2024-11-24] MEDS: PANTOPRAZOLE 40 MG TAB PO SCH (10:00)
[2024-11-24] MEDS ORDERED: LEVOTHYROXINE SODIUM 25 MCG TAB PO SCH (10:00)
[2024-11-24] MEDS: FUROSEMIDE 40 MG TAB PO SCH (10:00)
--- NOTE | 2024-11-24 11:18 | DVHINCON2 ---
Date of service: Nov 24, 2024 Referring Physician Margarita Lund NP Reason for Consultation Acute kidney injury History of Present Illness Mrs. Campbell is a 74-year-old female who was transferred from [facility] for positive troponin. Her initial presentation to outside facility was related to altered mental status. Current consultation requested for elevated serum creatinine, possible acute kidney injury. Patient was seen in the emergency department, intubated, sedated. All the history was obtained through the chart. Her clinical course in the emergency department notable for progressive respiratory distress requiring intubation, mechanical ventilation. She is found to be profoundly thrombocytopenic. Serum creatinine has been in the three range in his downtrending slightly. Urine volumes in oliguric range since Brasher placement. Past Medical History Heart failure Lupus Diabetes Hypothyroidism Allergies: Coded Allergies: NO KNOWN ALLERGIES (Unverified , 11/23/24) Home Meds Reported Medications Atorvastatin Calcium (ATORVASTATIN CALCIUM) 40 Mg Tab, 1 TAB PO QPM, #90 TAB 3 Refills 11/23/24 Tolterodine Tartrate (Tolterodine Tartrate ER) 4 Mg Cap, 4 MG PO DAILY, CAP 11/23/24 Furosemide (Furosemide) 40 Mg Tab, 1 TAB PO DAILY, #30 TAB 5 Refills 11/23/24 Pantoprazole Sodium Sesquihydr (Pantoprazole Sodium) 40 Mg Tab, 40 MG PO DAILY, TAB 11/23/24 Potassium Chloride (Potassium Chloride ER) 10 Meq Tab, 10 MEQ PO DAILY, TAB 11/23/24 Aspirin (Aspirin) 81 Mg Chw, 81 MG PO DAILY, TAB.CHEW 11/23/24 Levothyroxine Sodium (Levothyroxine Sodium) 25 Mcg Tab, 1 TAB PO DAILY, #30 TAB 5 Refills 11/23/24 Current Medications Current Medications Medications (Trade) Dose Ordered Sig/Christina Route PRN Reason Start Time Stop Time Status Last Admin Diagnostic Test (Pha) (Accu-Chek Comfort Curve T) 1 strip ACHS 11/23/24 11:30 11/24/24 08:53 DC 11/24/24 06:59 Insulin Human Regular (InsuLIN R) HS SC 11/23/24 22:00 11/24/24 08:53 DC Insulin Human Regular (InsuLIN R) AC SC 11/23/24 11:30 11/24/24 08:53 DC Furosemide (Lasix Tablet) 40 mg DAILY PO 11/24/24 10:00 Levothyroxine Sodium (Synthroid Tablet) 25 mcg DAILY PO 11/24/24 10:00 11/24/24 07:53 DC Pantoprazole Sodium (Protonix Tablet) 40 mg DAILY PO 11/24/24 10:00 Aspirin 81 mg DAILY PO 11/24/24 10:00 Hold Atorvastatin Calcium (Lipitor) 40 mg HS PO 11/24/24 22:00 Patient Own Medication 4 mg DAILY PO 11/24/24 10:00 Midazolam HCl 50 ml @ 1 mls/hr Q24H IV 11/24/24 07:15 11/24/24 07:15 Fentanyl Citrate 250 ml @ 2.5 mls/hr Q24H IV 11/24/24 07:30 Levothyroxine Sodium (Synthroid Tablet) 25 mcg DAILY@0600 PO 11/25/24 06:00 Diagnostic Test (Pha) (Accu-Chek Comfort Curve T) 1 strip Q6HR 11/24/24 12:00 Insulin Human Regular (InsuLIN R) Q6HR SC 11/24/24 12:00 Dextrose 50 ml UD PRN IV Blood Sugar LESS THAN 60 11/24/24 09:00 Review of Systems Unable to be obtained due to patient's critical status H&P Exam Vital Signs/I&O Vital Sign Date Time Temp Pulse Resp B/P (MAP) Pulse Ox O2 Delivery O2 Flow Rate FiO2 11/24/24 10:04 89 22 111/80 (90) 100 50 11/24/24 06:00 97.4 97.4 11/24/24 02:50 Nasal Cannula* 4 Intake and Output 11/23/24 11/24/24 19:00 07:00 Intake Total 834 ml 60 ml Output Total 0 ml Balance 834 ml 60 ml Intake Oral 0 ml IV Total 480 ml 60 ml Blood Product 354 ml Output Urine Total 0 ml Stool Total 0 ml Gastric Drainage Total 0 ml Emesis 0 ml Chest Tube Drainage Total 0 ml Other 0 ml Physical Exam Gen: Intubated, sedated heent: nc/at, mmm lungs: Adequate air exchange cvs: no rub abd: soft, bowel sounds audible ext: no edema skin: no rash, no appreciable petechiae neuro: Somnolent, sedated Labs/Diagnostic Data Labs/Diagnostic Data Laboratory Tests Test 11/24/24 08:54 11/24/24 06:36 11/24/24 03:21 11/24/24 02:54 Range/Units Blood Gas Specimen Type Arterial Arterial Blood Gas Sample Site Right radial Right radial Blood Gas Patient Temperature 37.0 37.0 Arterial Blood Date Drawn [id number] Arterial Blood pH 7.358 7.378 7.350-7.450 Arterial Blood Partial Pressure CO2 39.3 36.8 32.0-45.0 mmHg Arterial Blood Partial Pressure O2 359.8 *H 137.2 H 83.0-108.0 mmHg Arterial Blood HCO3 21.6 21.2 21.0-28.0 mmol/L Arterial Blood Oxygen Saturation 99.5 H 98.2 H 94.0-98.0 % Arterial Blood Base Excess -3.5 L -3.5 L -2.0-3.0 mmol/L Arterial Blood Oxyhemoglobin 97.6 96.1 94.0-98.0 % Arterial Blood Carboxyhemoglobin 1.3 1.5 0.5-1.5 % Arterial Blood Methemoglobin 0.6 0.6 0.0-1.5 % Simon Test Modified Yes Blood Gas Total Hemoglobin 9.70 L 9.60 L 12.0-16.0 g/dL Blood Gas Set Respiration Rate 18.0 Blood Gas Modality Vent - ac Nasal cannula FiO2 % 100.0 36.0 Blood Gas Tidal Volume 450.0 Blood Gas PEEP or CPAP 5.0 Blood Gas Critical Value Read Back Yes Blood Gas Notified Whom Dr. sg hermosillo Blood Gas Notified Time [id number] Blood Gas Notified By Rt sarah cavanaugh Blood Gas Liter Flow 4.00 White Blood Count 9.3 4.4-10.8 10^3/uL Red Blood Count 3.53 L 4.0-5.20 10^6/uL Hemoglobin 9.1 L 12.2-16.2 g/dL Hematocrit 26.4 L 36.0-46.0 % Mean Corpuscular Volume 74.7 L 80.0-100.0 fL Mean Corpuscular Hemoglobin 25.8 L 28.0-32.0 pg Mean Corpuscular Hemoglobin Concent 34.6 32.0-36.0 g/dL Red Cell Distribution Width 15.9 H 11.8-14.3 % Platelet Count 11 *L 140-450 10^3/uL Mean Platelet Volume 8.8 6.9-10.8 fL Neutrophils (%) (Auto) 75.8 37.0-80.0 % Lymphocytes (%) (Auto) 13.6 10.0-50.0 % Monocytes (%) (Auto) 9.1 0.0-12.0 % Eosinophils (%) (Auto) 0.7 0.0-7.0 % Basophils (%) (Auto) 0.8 0.0-2.0 % Neutrophils # (Auto) 7.1 1.6-8.6 10 ^3/uL Lymphocytes # (Auto) 1.3 0.4-5.4 10 ^3/uL Monocytes # (Auto) 0.8 0-1.3 10 ^3/uL Eosinophils # (Auto) 0.1 0-0.8 10 ^3/uL Basophils # (Auto) 0.1 0-0.2 10 ^3/uL Nucleated Red Blood Cells 0.9 % Platelet Estimate Markedly decreased Sodium Level 141 136-145 mmol/L Potassium Level 3.8 3.5-5.1 mmol/L Chloride Level 106 98-107 mmol/L Carbon Dioxide Level 20 20-31 mmol/L Anion Gap 15 5-15 Blood Urea Nitrogen 63 #H 9-23 mg/dL Creatinine 3.25 H 0.550-1.02 mg/dL Glomerular Filtration Rate Calc 14 >90 mL/min BUN/Creatinine Ratio 19.4 10.0-20.0 Serum Glucose 133 H 74-106 mg/dL Calcium Level 9.1 8.7-10.4 mg/dL Phosphorus Level 4.3 2.4-5.1 mg/dL Total Bilirubin 3.7 H 0.2-1.0 mg/dL Aspartate Amino Transferase (AST) 121 H 13-40 U/L Alanine Aminotransferase (ALT) 44 H 7-40 U/L Alkaline Phosphatase 69 46-116 U/L Creatine Kinase 293 H 34-145 U/L Total Protein 8.0 5.7-8.2 g/dL Albumin 3.7 3.2-4.8 g/dL POC Glucose 103 70-106 mg/dl Test 11/24/24 02:07 11/24/24 01:14 11/23/24 23:06 11/23/24 13:40 Range/Units White Blood Count 9.7 # 4.4-10.8 10^3/uL Red Blood Count 3.63 L 4.0-5.20 10^6/uL Hemoglobin 9.3 L 12.2-16.2 g/dL Hematocrit 27.0 #L 36.0-46.0 % Mean Corpuscular Volume 74.4 L 80.0-100.0 fL Mean Corpuscular Hemoglobin 25.6 L 28.0-32.0 pg Mean Corpuscular Hemoglobin Concent 34.4 32.0-36.0 g/dL Red Cell Distribution Width 15.9 H 11.8-14.3 % Platelet Count 17 #*L 140-450 10^3/uL Mean Platelet Volume 7.0 6.9-10.8 fL Neutrophils (%) (Auto) 79.8 37.0-80.0 % Lymphocytes (%) (Auto) 10.0 10.0-50.0 % Monocytes (%) (Auto) 8.6 0.0-12.0 % Eosinophils (%) (Auto) 0.9 0.0-7.0 % Basophils (%) (Auto) 0.7 0.0-2.0 % Neutrophils # (Auto) 7.7 1.6-8.6 10 ^3/uL Lymphocytes # (Auto) 1.0 0.4-5.4 10 ^3/uL Monocytes # (Auto) 0.8 0-1.3 10 ^3/uL Eosinophils # (Auto) 0.1 0-0.8 10 ^3/uL Basophils # (Auto) 0.1 0-0.2 10 ^3/uL Nucleated Red Blood Cells 1.0 % Platelet Estimate Markedly decreased Erythrocyte Sedimentation Rate 96 H 0-20 mm/hr Prothrombin Time 11.5 9.3-11.8 sec Prothrombin Time INR 1.09 0.9-1.15 Activated Partial Thromboplast Time 25.3 24.5-34.5 SEC D-Dimer, Quantitative 26.14 H 0.0-0.49 mg/L FEU Sodium Level 141 # 136-145 mmol/L Potassium Level 3.7 3.5-5.1 mmol/L Chloride Level 105 98-107 mmol/L Carbon Dioxide Level 22 20-31 mmol/L Anion Gap 14 5-15 Blood Urea Nitrogen 78 #H 9-23 mg/dL Creatinine 3.35 H 0.550-1.02 mg/dL Glomerular Filtration Rate Calc 14 >90 mL/min BUN/Creatinine Ratio 23.3 H 10.0-20.0 Serum Glucose 139 H 74-106 mg/dL Calcium Level 9.1 8.7-10.4 mg/dL Iron Level 222 H 50-170 ug/dL Total Iron Binding Capacity 247 L 250-425 ug/dL Percent Iron Saturation 89.9 H 15-50 % Total Bilirubin 3.9 H 0.2-1.0 mg/dL Aspartate Amino Transferase (AST) 121 H 13-40 U/L Alanine Aminotransferase (ALT) 43 H 7-40 U/L Alkaline Phosphatase 69 46-116 U/L Total Protein 8.2 5.7-8.2 g/dL Albumin 3.9 3.2-4.8 g/dL Blood Gas Specimen Type Arterial Blood Gas Sample Site Left radial Blood Gas Patient Temperature 37.0 Arterial Blood Date Drawn [id number] Arterial Blood pH 7.376 7.350-7.450 Arterial Blood Partial Pressure CO2 35.5 32.0-45.0 mmHg Arterial Blood Partial Pressure O2 143.9 H 83.0-108.0 mmHg Arterial Blood HCO3 20.3 L 21.0-28.0 mmol/L Arterial Blood Oxygen Saturation 98.5 H 94.0-98.0 % Arterial Blood Base Excess -4.3 L -2.0-3.0 mmol/L Arterial Blood Oxyhemoglobin 96.6 94.0-98.0 % Arterial Blood Carboxyhemoglobin 1.4 0.5-1.5 % Arterial Blood Methemoglobin 0.5 0.0-1.5 % Simon Test Modified Blood Gas Total Hemoglobin 10.20 L 12.0-16.0 g/dL Blood Gas Liter Flow 5.00 Blood Gas Modality Nasal cannula FiO2 % 40.0 POC Glucose 76 105 70-106 mg/dl Test 11/23/24 11:30 11/23/24 03:25 11/23/24 01:50 11/23/24 00:44 Range/Units Urine Color Yellow Yellow Urine Clarity Turbid H Clear Urine pH 5.5 5.0-9.0 Urine Specific [place] 1.016 1.001-1.035 Urine Protein 1+ H Negative Urine Ketones Negative Negative Urine Blood 3+ H Negative /uL Urine Nitrite Negative Negative Urine Bilirubin Negative Negative Urine Urobilinogen Normal Negative mg/dL Urine Leukocyte Esterase Negative Negative /uL Urine RBC 28 0 - 4 /hpf Urine Microscopic WBC 4 0-5 /HPF Urine Squamous Epithelial Cells Few <5 /hpf Urine Bacteria None seen None Seen /hpf Urine Glucose Normal Normal mg/dL Urine Opiates Screen Pos NEGATIVE Urine Fentanyl Screen Neg NEGATIVE Urine Barbiturates Screen Neg NEGATIVE Urine Phencyclidine Screen Neg NEGATIVE Urine Amphetamines Screen Neg NEGATIVE Urine Benzodiazepines Screen Neg NEGATIVE Urine Cocaine Screen Neg NEGATIVE Urine Cannabinoids Screen Neg NEGATIVE Troponin I High Sensitivity 1591 *H 1612 *H 1870 *H </=34 ng/L C-Reactive Protein High Sensitivity 5.74 H <1.0 mg/dL White Blood Count 7.3 4.4-10.8 10^3/uL Red Blood Count 4.00 4.0-5.20 10^6/uL Hemoglobin 10.4 L 12.2-16.2 g/dL Hematocrit 30.6 L 36.0-46.0 % Mean Corpuscular Volume 76.3 L 80.0-100.0 fL Mean Corpuscular Hemoglobin 25.9 L 28.0-32.0 pg Mean Corpuscular Hemoglobin Concent 33.9 32.0-36.0 g/dL Red Cell Distribution Width 15.9 H 11.8-14.3 % Platelet Count 9 *L 140-450 10^3/uL Mean Platelet Volume 8.7 6.9-10.8 fL Neutrophils (%) (Auto) 73.5 37.0-80.0 % Lymphocytes (%) (Auto) 16.0 10.0-50.0 % Monocytes (%) (Auto) 7.6 0.0-12.0 % Eosinophils (%) (Auto) 2.1 0.0-7.0 % Basophils (%) (Auto) 0.8 0.0-2.0 % Neutrophils # (Auto) 5.4 1.6-8.6 10 ^3/uL Lymphocytes # (Auto) 1.2 0.4-5.4 10 ^3/uL Monocytes # (Auto) 0.6 0-1.3 10 ^3/uL Eosinophils # (Auto) 0.2 0-0.8 10 ^3/uL Basophils # (Auto) 0.1 0-0.2 10 ^3/uL Nucleated Red Blood Cells 0.6 % Platelet Estimate Markedly decreased Sodium Level 136 136-145 mmol/L Potassium Level 4.1 3.5-5.1 mmol/L Chloride Level 101 98-107 mmol/L Carbon Dioxide Level 18 L 20-31 mmol/L Anion Gap 17 H 5-15 Blood Urea Nitrogen 64 H 9-23 mg/dL Creatinine 3.94 H 0.550-1.02 mg/dL Glomerular Filtration Rate Calc 11 >90 mL/min BUN/Creatinine Ratio 16.2 10.0-20.0 Serum Glucose 109 H 74-106 mg/dL Lactic Acid Level 1.5 0.4-2.0 mmol/L Calcium Level 9.0 8.7-10.4 mg/dL Magnesium Level 1.9 1.6-2.6 mg/dL Total Bilirubin 3.3 H 0.2-1.0 mg/dL Aspartate Amino Transferase (AST) 107 H 13-40 U/L Alanine Aminotransferase (ALT) 36 7-40 U/L Alkaline Phosphatase 71 46-116 U/L B-Type Natriuretic Peptide 76.94 0-100 pg/mL Total Protein 8.4 H 5.7-8.2 g/dL Albumin 4.0 3.2-4.8 g/dL Plasma/Serum Blood Alcohol < 3.0 <10 mg/dL Assessment IMP: 1) Hemodynamically mediated IVA/VMN, possible prerenal state 2) CKD ? 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 chemistry panels - we will continue to follow closely with you. Thank you for the consultation Plan discussed with: Other MALACHI STARR MD Nov 24, 2024 11:18
[2024-11-24] MEDS: SODIUM CHLORIDE 0.9% 1,000 ML IV ONE (11:31)
[2024-11-24] MEDS: ACCU-CHEK COMFORT CURVE STRIP VI SCH (12:00)
[2024-11-24] MEDS: InsuLIN REG 1unit/0.01ml Soln (100units/ml) SC SCH (12:30)
--- NOTE | 2024-11-24 13:15 | DVHNC2 ---
Intubation Indication: Respiratory Insufficiency Prep: Preoxygenation Pretreated with: Analgesia, Sedation Medicated with: Succinylcholine, Vecuronium Intubation Approach: Orotracheal Intubation size: cm (8) Date of Service: Nov 24, 2024 Billing Provider: DON LAWS MD Common Visit Codes: 78078-WCVTGIM INP/OBS CARE (HIGH) Secondary Visit Codes: 64788-OOULRCANG STANDBY SERVICE Consultation Codes: 52801-[id number] CONSULT <45MIN Procedure Codes: 54830-[id number] DON LAWS MD Nov 24, 2024 13:15
--- NOTE | 2024-11-24 13:48 | DVHSR ---
APPROVED REPORT EXAM: Two-dimensional and M-mode echocardiogram with Doppler and color Doppler. Blood Pressure: 132/6 mmHg INDICATION nstemi RISK FACTORS Obesity: Height: 5'0, Weight: 260 DIMENSIONS LVDd3.5 (3.8-5.7cm)LA (2D)3.6 (1.9-4.0cm)Aortic Root3.6 (2.0-3.7cm) LVDs2.5 (2.5-4.0cm)LA (MM) (1.9-4.0cm)Aortic Cusp Exc2.0 (1.5-2.0cm) EF (%) 55.0 (55-70%)Rt. Atrium3.3 (1.9-4.0cm)Asc. Aorta cm IVSd1.4 (0.7-1.1cm)RV (D)4.3 (1.8-2.4cm) PWd1.2 (0.7-1.1cm) Mitral Valve MitralMitral Stenosis E wave0.58m/sMV Mean GR.mmHg A wave1.07m/sMV Peak GR.mmHg E/A ratio0.52D MVAcm2 DECEL [id number] 1/2 Timems Aortic Valve Aortic ValveAortic Stenosis V10.93m/Abdias Mean GR.4mmHg V21.32m/Abdias Peak GR.7mmHg LVOT Diameter2.0 (1.8-2.4cm)Doppler AVA2.21cm2 Pulmonic Valve V20.95m/s Tricuspid Valve TR Velocity2.29m/s [id number] Other Information Technically limited study due to pt altered moving, and pushing probe away. Conclusion Technically good study. Sinus rhythm. Concentric LVH with left atrial enlargement. Mild aortic root enlargement. RV enlargement. Valves appear to be structurally normal. Left ventricular systolic performance is preserved at 60% with normal RV function. Unremarkable Doppler. No pericardial effusion masses or vegetations noted.
[2024-11-24] MEDS: methylPREDNISolone SOD SUCC 125 MG/2 ML VL IV ONE (15:11)
--- NOTE | 2024-11-24 16:20 | DVHPN2 ---
Consult Progress Note Subjective Patient reports: Other Review of Systems: Deferred (intubated and sedated) Objective vital signs Vital Sign Date Time Temp Pulse Resp B/P (MAP) Pulse Ox O2 Delivery O2 Flow Rate FiO2 11/24/24 16:00 50 11/24/24 16:00 Mechanical Ventilator+ 11/24/24 14:30 93 21 105/64 (78) 98 11/24/24 12:13 97.4 97.4 11/24/24 02:50 4 Total Intake and Output 11/23/24 11/23/24 11/24/24 15:00 23:00 07:00 Intake Total 594 ml 300 ml 60 ml Output Total 0 ml Balance 594 ml 300 ml 60 ml medications Current Medications Medications Dose Ordered Sig/Christina Route Start Time Stop Time Status Last Admin Dose Admin Sodium Chloride 1,000 ml @ 60 mls/hr [id number] IV 11/23/24 09:45 11/24/24 03:02 60 MLS/HR Ondansetron HCl 4 mg Q4HP PRN IV 11/23/24 09:45 Nitroglycerin 0.4 mg Q5MINP PRN SL 11/23/24 09:45 Furosemide 40 mg DAILY PO 11/24/24 10:00 Pantoprazole Sodium 40 mg DAILY PO 11/24/24 10:00 Atorvastatin Calcium 40 mg HS PO 11/24/24 22:00 Midazolam HCl 50 ml @ 1 mls/hr Q24H IV 11/24/24 07:15 11/24/24 07:15 1 MLS/HR Fentanyl Citrate 250 ml @ 2.5 mls/hr Q24H IV 11/24/24 07:30 Levothyroxine Sodium 25 mcg DAILY@0600 PO 11/25/24 06:00 Diagnostic Test (Pha) 1 strip Q6HR 11/24/24 12:00 11/24/24 12:00 1 STRIP Insulin Human Regular Q6HR SC 11/24/24 12:00 Dextrose 50 ml UD PRN IV 11/24/24 09:00 Piperacillin Sod/ Tazobactam Sod 100 ml @ 25 mls/hr Q12HR IV 11/24/24 22:00 Methylprednisolone Sodium Succinate 125 mg Q8HR IV 11/24/24 22:00 Examination: LUNGS:Abnormal (vented, FiO2 50%), NEURO:Abnormal (sedated) laboratory and microbiology Laboratory Tests 11/24/24 03:21 Test 11/24/24 03:21 Range/Units Serum Glucose 133 H 74-106 mg/dL Problem List/Assessment/Plan Problem List/Assessment/Plan Possible uremic encephalopathy Severe thrombocytopenia with history of SLE Elevated D-dimer >29 rule out venous thromboembolism Acute kidney injury NSTEMI, likely type II secondary to above Rule out structural heart disease Microcytic anemia Morbid obesity Plan/Recommendation (Dr. Pierce) Likely NSTEMI Type II secondary to overall clinical derangement. Follow up echo showing normal preserved EF 60%, normal RV function, LVH. No significant valvular structural abnormalities. Recommend continue conservative medical management given severe thrombocytopenia and poor kidney function. Extremity ultrasound negative for DVT. VQ Scan to rule out PE given elevated d-dimer level >29. Hold off on anticoagulation or antiplatelet therapy at this time given severe thrombocytopenia. Agree with platelet infusion. Follow up nephrology recs. There is no further cardiac work-up indicated at this time. Thank you for allowing us to participate in this patient's care. Please call if you have any questions or concerns. Critical care time: 40 minutes. This medical document was created using an electronic medical record system with voice recognition software and computerized dictation system. Although this document has been carefully reviewed, there might still be some phonetic and typographical errors. Occasional wrong-word or ``sound-alike substitutions may have occurred due to the inherent limitations of voice recognition software. These areas are purely typographical due to imperfections of the software programs and do not reflect any compromise in the patient's medical care. Please read the chart carefully and recognize, using context, where these substitutions have occurred. Plan discussed with: Other (Bedside RN) CC Plasma Assessment Blood Product Administration S: [id number] Date of Service: Nov 24, 2024 Billing Provider: CISCO PIERCE Sr., MD Common Visit Codes: [id number] INP/OBS CARE(HIGH), 98103-[id number] CARE 30-74 MIN NADIA MOTT [facility] Nov 24, 2024 16:20
[2024-11-24] MEDS ORDERED: methylPREDNISolone SOD SUCC 1,000 MG in SODIUM CHL 0.9% 250 ML IV ONE (18:30)
--- NOTE | 2024-11-24 18:32 | DVHPNRES ---
Progress Note Date Seen: Nov 24, 2024 Resident Creating Document: MIRANDA VILLANUEVA RESDIENT Medical Necessity Reason Pt with a Central, PICC or Fol: Yes Subjective Review of Systems Patient is seen and examined at the bedside, Patient is sedated and on mechanical ventilation. Patient reports: No new complaints Objective vital signs Vital Sign Date Time Temp Pulse Resp B/P (MAP) Pulse Ox O2 Delivery O2 Flow Rate FiO2 11/24/24 18:00 100 11/24/24 18:00 30 11/24/24 18:00 Mechanical Ventilator+ 11/24/24 18:00 36 107/75 (86) 97 11/24/24 16:00 96.8 96.8 11/24/24 02:50 4 Total Intake and Output 11/23/24 11/23/24 11/24/24 15:00 23:00 07:00 Intake Total 594 ml 300 ml 60 ml Output Total 0 ml Balance 594 ml 300 ml 60 ml medications Current Medications Medications Dose Ordered Sig/Christina Route Start Time Stop Time Status Last Admin Dose Admin Sodium Chloride 1,000 ml @ 60 mls/hr [id number] IV 11/23/24 09:45 11/24/24 03:02 60 MLS/HR Ondansetron HCl 4 mg Q4HP PRN IV 11/23/24 09:45 Nitroglycerin 0.4 mg Q5MINP PRN SL 11/23/24 09:45 Furosemide 40 mg DAILY PO 11/24/24 10:00 Pantoprazole Sodium 40 mg DAILY PO 11/24/24 10:00 Atorvastatin Calcium 40 mg HS PO 11/24/24 22:00 Midazolam HCl 50 ml @ 1 mls/hr Q24H IV 11/24/24 07:15 11/24/24 16:25 3 MLS/HR Fentanyl Citrate 250 ml @ 2.5 mls/hr Q24H IV 11/24/24 07:30 Levothyroxine Sodium 25 mcg DAILY@0600 PO 11/25/24 06:00 Diagnostic Test (Pha) 1 strip Q6HR 11/24/24 12:00 11/24/24 17:28 1 STRIP Insulin Human Regular Q6HR SC 11/24/24 12:00 Dextrose 50 ml UD PRN IV 11/24/24 09:00 Methylprednisolone Sodium Succinate 125 mg Q8HR IV 11/24/24 22:00 Cefepime HCl 50 ml @ 12.5 mls/hr DAILY IV 11/25/24 10:00 UNV Examination General: RASS -2, afebrile, mucosae are moist Cardiovascular: Normal S1 and S2. No murmurs, gallops or rubs Respiratory: Mechanically assisted ventilation, equal bilateral airway entree. Clear lung sounds on auscultation Mechanical ventilation setting: GI: Soft, nontender, no organomegaly, normal bowel sounds : Brasher catheter n place, clear yellow urine in collection bag MSK/skin: Mobilization of limbs cannot be evaluated. Skin is dry and warm. IV accesses: Neurological: Orientation cannot be assessed. No apparent motor no sensitive deficits. Pupils are isocoric and reactive laboratory and microbiology Laboratory Tests 11/24/24 03:21 Test 11/24/24 03:21 Range/Units Serum Glucose 133 H 74-106 mg/dL Microbiology Date/Time Source Procedure Growth Status 11/23/24 01:50 Blood Blood Culture - Preliminary NO GROWTH AFTER 24 HOURS OF INCUBATION. Resulted Labs and/or images reviewed: Labs reviewed by me, Image(s) reviewed by me Problem List/Assessment/Plan Problem List/Assessment/Plan This is a 74-year-old lady with past medical history of diabetes type 2, dyslipidemia, hypothyroidism, morbid obesity, SLE referred from [facility] due to possible NSTEMI. Admitted on 11/23, intubated on 11/24. NEURO: Acute metabolic encephalopathy, likely due SLE flare-up/uremia RASS score -[address] scan 11/24 shows no significant intracranial abnormalities Continue Versed, CARDIOVASCULAR: NSTEMI, likely type 2 History of hypertension Echo 11/24 shows normal study Due to severe thrombocytopenia, no antiplatelet can be given Atorvastatin RESPIRATORY: Acute hypoxic respiratory failure, likely due to encephalopathy Sedated and on mechanical ventilation Chest x-ray shows no significant intra thoracic abnormalities Zosyn GENITOURINARY/FLUID: IVA, possibly on CKD, VMN (no baseline record available) Nephrology on board, recommended medical management GASTROINTESTINAL/NUTRITION: Transaminitis HEMATOLOGY: Severe thrombocytopenia, likely due to SLE flare-up Possible SLE flare-up Moderate anemia, likely due to SLE flare-up Raised D-dimer Ruled out DVT lower limb Transfused 2 pt of platelet Solu-Medrol 1 g daily for 3 days Check [place] panel and peripheral cytology ENDOCRINE: History of diabetes Hypothyroidism Insulin according to sliding scale, and levothyroxine METABOLIC: Morbid obesity DIET: NPO DVT prophylax: SCD GI prophylaxis: Protonix LINES/DEVICES ETT: Intubated on 11/24 IV access: Drips: Versed Brasher catheter: Placed on 11/24 Disposition: Continue ICU status Family: Patients status updated at the bedside with patient's has been on son. Critical care time: Spent > 78 min, spent in direct critical care, including evaluation, management, review of labs/imaging, and multidisciplinary/family discussions, (excluding any procedures). Case discussed with Dr. Diamond Plan discussed with: Spouse, Son (RN), Other My Orders My Orders Orders - MIRANDA VILLANUEVA RESTAWNY Procedure Category Date Status Time Methylprednisolone PHA 11/24/24 In Process Sod Succ (Solu Medrol 22:00 Pharmacy [facility] 11/24/24 In Process Clarification: 14:16 Pheresis Platelets BBK 11/24/24 Logged 14:36 Mrsa Screen EZ 11/24/24 In Process 14:56 Cefepime 1gm/50ml PHA 11/25/24 Logged (Maxipime 1gm/50ml) 10:00 CC Plasma Assessment Blood Product Administration S: [id number] MIRANDA VILLANUEVA RESDIENT Nov 24, 2024 18:32
[2024-11-24 19:08] LABS: Chloride 107 mmol/L (98-107); Potassium 4.5 mmol/L (3.5-5.1); Sodium 144 mmol/L (136-145)
[2024-11-24 19:09] LABS: Anion Gap 17 (5-15); Carbon Dioxide 20 mmol/L (20-31)
[2024-11-24 19:10] LABS: Calcium 8.5 mg/dL (8.7-10.4)
[2024-11-24 19:14] LABS: BUN/Creatinine Ratio 31.9 (10.0-20.0); Glucose 171 mg/dL (74-106)
[2024-11-24] MEDS ORDERED: NOREPINEPHRINE 8 MG/250ML KIT 250 ML IV SCH (19:15)
[2024-11-24 19:17] LABS: Blood Urea Nitrogen 95 mg/dL (9-23)
[2024-11-24] MEDS ORDERED: ENOXAPARIN SOD 40 MG/0.4 ML SYRINGE SC ONE (19:30)
[2024-11-24] MEDS ORDERED: ENOXAPARIN SOD 40 MG/0.4 ML SYRINGE SC SCH (19:45)
[2024-11-24] MEDS: ATORVASTATIN 20 MG TAB PO SCH (21:22)
[2024-11-24] MEDS ORDERED: PIPERACILLIN-TAZOB 3.375GM 100 ML IV SCH (22:00)
[2024-11-24] MEDS ORDERED: methylPREDNISolone SOD SUCC 125 MG/2 ML VL IV SCH (22:00)
[2024-11-24] MEDS ORDERED: methylPREDNISolone SOD SUCC 125 MG/2 ML VL ONE (22:01)
[2024-11-24] MEDS ORDERED: EPINEPHrine HCL 250 ML IV SCH (22:30)
[2024-11-24] MEDS ORDERED: EPINEPHrine HCL 250 ML IV ONE (22:31)
[2024-11-24] MEDS ORDERED: EPINEPHrine HCL 1 MG/10 ML SYRG ONE (22:40)
[2024-11-24 22:43] LABS: Base Excess 3.1 mmol/L (-2.0-3.0)
[2024-11-24 22:52] LABS: Hemoglobin 7.5 g/dL (12.2-16.2); Mean Corpuscular Volume 76.5 fL (80.0-100.0)
[2024-11-24 22:54] LABS: Hematocrit 22.6 % (36.0-46.0); Mean Corpuscular Hemoglobin 25.5 pg (28.0-32.0)
[2024-11-24 23:09] LABS: INR 1.42 (0.9-1.15); Partial Thromboplastin Time 31.4 SEC (24.5-34.5); Prothrombin Time 14.5 sec (9.3-11.8)
[2024-11-24 23:14] LABS: Alkaline Phosphatase 60 U/L (46-116); Anion Gap 25 (5-15); BUN/Creatinine Ratio 24.5 (10.0-20.0); Magnesium 2.3 mg/dL (1.6-2.6); Potassium 4.3 mmol/L (3.5-5.1); Total Protein 6.3 g/dL (5.7-8.2)
[2024-11-24 23:17] LABS: Albumin 3.0 g/dL (3.2-4.8); Bilirubin, Total 4.6 mg/dL (0.2-1.0); Blood Urea Nitrogen 73 mg/dL (9-23); Calcium 7.0 mg/dL (8.7-10.4); Carbon Dioxide 17 mmol/L (20-31); Chloride 111 mmol/L (98-107); Glucose 132 mg/dL (74-106); Sodium 153 mmol/L (136-145)
[2024-11-25 00:13] LABS: Alanine Aminotransferase 1656 U/L (7-40)
[2024-11-25 00:57] LABS: Nucleated Red Blood Cells % 17.0 %; Smudge Cells 5 /100 WBC; Total Cells Counted 100.0 (100)
--- NOTE | 2024-11-25 02:50 | RESUS ---
ANI STOUT ASSESSSMENT History of Events History of Events: [facility] trop[facility]. Pt was intubated on 11/24/24 and upgraded to ICU. Per primary RN, pt appeared to [place]red[place] down on monitor. When assessed for pulses, no palpable pulse detected. CPR initiated and ANI STOUT called. Initial Information Date: Nov 24, 2024 Time: 22:11 Location of Arrest: ER Arrest Witnessed: Yes CPR started initial time: 22:11 CPR started by whom: Hospital Staff Pre-Hospital Care: Pre-Code Care (inpatient) Type of arrest: Cardiac, Respiratory, Adult, Witnessed Spontaneous Respirations: No Pulse Present: No Monitoring: ECG, Pulse Oximetry, Telemetry Crash Cart Opened and Supplies: Yes Airway Ventilation Breathing at Onset: Assisted Oxygen Delivery Method: Mechanical Ventilator Time of first Assisted Ventila: 22:11 Artificial Ventilation: Bag/Endo tube Intubation Size: 8.0 cuffed Intubated orally: Yes Intubated Nasaly: No Tube secured at: 24 (cm @ lip) Comments: Pt was intubated prior to code Circulation Circulation #1: Time: 22:11 Pulse Rate (adult): 0 Blood Pressure Systolic: 0 Blood Pressure Diastolic: 0 Temperature (Fahrenheit): 99.5 Circulation #2: Time: 22:13 Pulse Rate (adult): 0 Blood Pressure Systolic: 0 Blood Pressure Diastolic: 0 Circulation Comment: PEA Circulation #3: Time: 22:15 Pulse Rate (adult): 109 Blood Pressure Systolic: 143 Blood Pressure Diastolic: 39 Circulation Comment: ROSC Circulation #4: Time: 22:23 Pulse Rate (adult): 0 Blood Pressure Systolic: 0 Blood Pressure Diastolic: 0 Circulation Comment: Pulses lost; Ani stout called Circulation #5: Time: 22:25 Pulse Rate (adult): 0 Blood Pressure Systolic: 0 Blood Pressure Diastolic: 0 Circulation Comment: ROSC Circulation #6: Time: 22:28 Pulse Rate (adult): 0 Blood Pressure Systolic: 0 Blood Pressure Diastolic: 0 Circulation Comment: Pulses lost; Code girish called Circulation #7: Time: 22:30 Pulse Rate (adult): 0 Blood Pressure Systolic: 0 Blood Pressure Diastolic: 0 Circulation Comment: ROSC Circulation #8: Time: 22:34 Pulse Rate (adult): 0 Blood Pressure Systolic: 0 Blood Pressure Diastolic: 0 Circulation Comment: Pulses lost; Ani stout called Circulation #9: Time: 22:36 Pulse Rate (adult): 0 Blood Pressure Systolic: 0 Blood Pressure Diastolic: 0 Circulation Comment: ROSC Circulation #10: Time: 22:38 Pulse Rate (adult): 0 Blood Pressure Systolic: 0 Blood Pressure Diastolic: 0 Circulation Comment: Pulses lost; Code blue called Circulation #11: Time: 22:40 Pulse Rate (adult): 0 Blood Pressure Systolic: 0 Blood Pressure Diastolic: 0 Circulation Comment: PEA Circulation #12: Time: 22:42 Pulse Rate (adult): 0 Blood Pressure Systolic: 0 Blood Pressure Diastolic: 0 Circulation Comment: PEA Circulation #13: Time: 22:44 Pulse Rate (adult): 0 Blood Pressure Systolic: 0 Blood Pressure Diastolic: 0 Circulation Comment: TOD Procedure - IV Procedure - IV : IV Side: Right IV Location: Upper Arm Anterior IV Catheter Type: Saline Lock IV Placed: In Hospital IV Gauge: 20 IV Line Care: Saline Flush Comment IV placed prior to code Medications & Response Medications and Responses #1: Medication Time: 22:12 ADULT Medications Given ADULT: Epinephrine 1 mg Route of Administration: IV Heart Rate: 0 EKG Rhythm: PEA Blood Pressure Systolic: 0 Blood Pressure Diastolic: 0 Respiratory Rate: 0 Medications and Responses #2: Medication Time: 22:13 ADULT Medications Given ADULT: Sodium Bacarbinate 50 meq Route of Administration: IV Heart Rate: 0 Blood Pressure Systolic: 0 Blood Pressure Diastolic: 0 Respiratory Rate: 0 EKG Rhythm: PEA Medications and Responses #3: Medication Time: 22:16 ADULT Medications Given ADULT: Sodium Bacarbinate 50 meq Route of Administration: IV Heart Rate: 0 Blood Pressure Systolic: 0 Blood Pressure Diastolic: 0 Respiratory Rate: 0 Medications and Responses #4: Medication Time: 22:23 ADULT Medications Given ADULT: Epinephrine 1 mg Route of Administration: IV Heart Rate: 0 Blood Pressure Systolic: 0 Blood Pressure Diastolic: 0 Respiratory Rate: 0 Medications and Responses #5: Medication Time: 22:28 ADULT Medications Given ADULT: Epinephrine 1 mg Route of Administration: IV Heart Rate: 0 Blood Pressure Systolic: 0 Blood Pressure Diastolic: 0 Respiratory Rate: 0 Medications and Responses #6: Medication Time: 22:33 ADULT Medications Given ADULT: Epinephrine 1 mg Route of Administration: IV Heart Rate: 0 Blood Pressure Systolic: 0 Blood Pressure Diastolic: 0 Respiratory Rate: 0 Medications and Responses #7: Medication Time: 22:34 ADULT Medications Given ADULT: Calcium Chloride 10 mL Route of Administration: IV Heart Rate: 0 Blood Pressure Systolic: 0 Blood Pressure Diastolic: 0 Respiratory Rate: 0 Medications and Responses #8: Medication Time: 22:36 ADULT Medications Given ADULT: Magnesium Sulfate 2 gm Route of Administration: IV Heart Rate: 0 Blood Pressure Systolic: 0 Blood Pressure Diastolic: 0 Respiratory Rate: 0 Medications and Responses #9: Medication Time: 22:38 ADULT Medications Given ADULT: Epinephrine 1 mg Route of Administration: IV Heart Rate: 0 Blood Pressure Systolic: 0 Blood Pressure Diastolic: 0 Respiratory Rate: 0 Medications and Responses #10: Medication Time: 22:40 ADULT Medications Given ADULT: Calcium Chloride 10 mL Route of Administration: IV Heart Rate: 0 Blood Pressure Systolic: 0 Blood Pressure Diastolic: 0 Respiratory Rate: 0 Medications and Responses #11: Medication Time: 22:42 ADULT Medications Given ADULT: Epinephrine 1 mg Route of Administration: IV Heart Rate: 0 Blood Pressure Systolic: 0 Blood Pressure Diastolic: 0 Respiratory Rate: 0 Procedure - NG/OG Tube Procedure - NG/OG Tube : Type of gastric tube placed: OG Gastric Tube Location: Oral GI Tube Secured: Yes Gastric Tube Suction Type/Desc: Low, Intermittant Gastric Content Description: None Comment OG placed prior to code Procedure - ABG ABG Time: 22:30 ABG site: Rt Femoral ABG done by: Resident Don ABG number of attempts: 2 Procedure - Central Venous Cat Central venous catheter site: Lt Femoral Central Venous Catheter Insert: Ever Comment: Placed prior to code Procedure - Brasher Catheter Urinary Catheter Type/Location: Uretheral (Brasher) Urine Color: Light Jeana Brasher Catheter Secured: Yes Comment: Brasher placed prior to code Nurses Notes [place] Coma Scale Eye Opening: None (1) [place] Coma Scale Verbal: None (1) [place] Coma Scale Motor: None (1) [place] Total: 3 Pupil Reaction: Non Reactive Bedside Blood Glucose: 153 EKG Rhythm: Junctional (Junctional tachycardia with incomplete RBBB, prolonged QT interval with HR 119 @ 2218) Nurses Notes - Comment: Epi drip initiated at 10mg @ 2233 Time Code Ended Time Code Ended: 22:44 Post Arrest Status: Outcome of code: Unsuccessful Patient pronounced by: ELIGIO Aj/Resident Don Time patient pronounced: 22:44 Attending called: Yes Code Team Present: EILGIO jA; Resident Don; Guille Medrano RN - ER Charge; Rosette Negrete RN - Dependency Program Director; Lavern Alvarez RN - ICU Charge; Wanda Gayle RN - Primary RN; Lois Vivas, RN; Sheree Medrano RN; Miranda Wolfe RN; Juan Alvarez, RT; Steve Vivas, ERT; Kirk Alvarez, ERT; Debra Ragsdale, ERT; Louisa Gallardo, ERT Post Resuscitation Neurologica Pupil Size: 2 (Initial ROSC @ 2215) Comment: Fixed ROSC Time of ROSC: 22:15 (Initial ROSC; multiple ROSCs) Pt Meets Criteria for Therapeu: Yes Rosette Key Nov 25, 2024 02:50
[2024-11-25] MEDS ORDERED: LEVOTHYROXINE SODIUM 25 MCG TAB PO SCH (06:00)
[2024-11-25] MEDS ORDERED: CEFEPIME 1GM/50ML 50 ML IV SCH (10:00)
[2024-11-25] MEDS ORDERED: methylPREDNISolone SOD SUCC 1,000 MG in SODIUM CHL 0.9% 250 ML IV SCH (10:00)
[2024-11-25] MEDS ORDERED: ENOXAPARIN SOD 40 MG/0.4 ML SYRINGE SC SCH (20:00)
--- NOTE | 2024-11-26 13:35 | ECG ---
[facility] Test Date: 2024-11-24 Test Time: 22:18:29 Pat Name: GENE COLUNGA Department: [facility] ED Room: [address] [place] [address] Gender: F Dining Room Supervisor: darian : [id number] Requested By: RASHAD THOMPSON Order Number: [id number] Reading MD: Measurements Intervals [place] Rate: 119 P: 0 FL: 0 QRS: -84 QRSD: 112 T: 55 QT: 390 QTc: 549 Interpretive Statements Junctional tachycardia Incomplete right bundle branch block Inferior infarct, old Lateral leads are also involved Prolonged QT interval Please click the below link to view image of tracing.
[2024-11-27 10:07] LABS: Anti-Centromere B Antibody <0.2 AI (0.0-0.9); Anti-Jo-1 Antibody <0.2 AI (0.0-0.9); Anti-dsDNA Antibody 1 IU/mL (0-9); Antichromatin Antibody <0.2 AI (0.0-0.9); Antiscleroderma-70 Antibody 1.8 AI (0.0-0.9); Sjogren's Anti-SS-A Antibody >8.0 AI (0.0-0.9); Sjogren's Anti-SS-B Antibody <0.2 AI (0.0-0.9)
== END 2024-11-24 22:44 | DRG 545 ==
LOC: ER 23:52 → OVERFLOW 11-23 09:44
PROVIDERS: ADMIT Nurse Practitioner Family; ATTEND Nurse Practitioner Family
PROC: 30233R1 Transfusion of Nonautologous Platelets into Peripheral Vein, Percutaneous Approach (ICD-10-PCS; principal; 2024-11-23)
PROC: 0BH17EZ Insertion of Endotracheal Airway into Trachea, Via Natural or Artificial Opening (ICD-10-PCS; 2024-11-23)
PROC: 5A1935Z Respiratory Ventilation, Less than 24 Consecutive Hours (ICD-10-PCS; 2024-11-23)
PROC: 02HV33Z Insertion of Infusion Device into Superior Vena Cava, Percutaneous Approach (ICD-10-PCS; 2024-11-23)
PROC: 5A12012 Performance of Cardiac Output, Single, Manual (ICD-10-PCS; 2024-11-24)
DX: M32.9 Systemic lupus erythematosus, unspecified (principal); G92.8 Other toxic encephalopathy; I21.A1 Myocardial infarction type 2; J96.01 Acute respiratory failure with hypoxia; N17.0 Acute kidney failure with tubular necrosis; Z68.43 Body mass index [BMI] 50.0-59.9, adult; D50.9 Iron deficiency anemia, unspecified; D69.6 Thrombocytopenia, unspecified; E66.01 Morbid (severe) obesity due to excess calories; K21.9 Gastro-esophageal reflux disease without esophagitis; R74.01 Elevation of levels of liver transaminase levels; E03.9 Hypothyroidism, unspecified; E11.9 Type 2 diabetes mellitus without complications; E78.5 Hyperlipidemia, unspecified; I50.9 Heart failure, unspecified; Z96.612 Presence of left artificial shoulder joint; Z79.899 Other long term (current) drug therapy
CPT/HCPCS: 36415; 36600; 70450; 71045; 80048; 80053; 80307; 80320; 81001; 82140; 82550; 82607; 82805; 82962; 83516; 83540; 83550; 83605; 83735; 83880; 84100; 84443; 84484; 85007; 85025; 85027; 85379; 85610; 85652; 85730; 86141; 86225; 86235; 86850; 86900; 86901; 87040; 87070; 87081; 87205; 93005; 93306; 93970; 94002; 96360; G0378; J0169